=== PATIENT | female | born 1970 | race Caucasian/White ===

== ENCOUNTER 2017-07-09 06:14 | Emergency (ER) | payer OTHER ==
[~2017-07-09] VITALS: Ht 167.6 cm; Wt 76.3 kg
[2017-07-09 06:17] VITALS: BP 147/97
== END 2017-07-09 10:15 | disposition left against medical advice (07) ==
LOC: EME 06:14
DX: M25.512 Pain in left shoulder (principal); Z53.21 Procedure and treatment not carried out due to patient leaving prior to being seen by health care provider